=== PATIENT | female | born 1995 | race Asian ===

== ENCOUNTER 2018-09-28 00:10 | Emergency (ER) | payer MEDICAID, OTHER ==
[~2018-09-28] VITALS: Ht 170.2 cm; Wt 48.1 kg
--- NOTE | 2018-09-28 00:25 | NUR ---
PT BIBSELF COMPLAINING OF RASH THAT STARTED AT 3AM YESTERDAY. PT STATES, "THE RASH BECAME ITCHY, AND GETTING WORSE TODAY." PT IS AXO4. RESPIRATIONS EVEN AND UNLABORED. PT AMBULATORY WITH STEADY GAIT TO BED 12.
--- NOTE | 2018-09-28 00:35 | NUR ---
PT AMBULATED W/ STEADY GAIT TO BATHROOM. URINE SAMPLE OBTAINED AND SENT TO LAB.
[2018-09-28] MEDS ORDERED: diphenhydrAMINE HCL 25 MG CAPSULE PO ONE (01:00)
[2018-09-28] MEDS ORDERED: FAMOTIDINE (20 MG) 20 MG TABLET PO ONE (01:00)
[2018-09-28] MEDS ORDERED: predniSONE 20 MG TABLET PO ONE (01:00)
[2018-09-28] MEDS ORDERED: predniSONE 20 MG TABLET ONE (01:10)
[2018-09-28] MEDS ORDERED: FAMOTIDINE (20 MG) 20 MG TABLET ONE (01:10)
[2018-09-28] MEDS ORDERED: diphenhydrAMINE HCL 50 MG CAPSULE ONE (01:10)
[2018-09-28] MEDS ORDERED: EPINEPHRINE (1:1000) 1 MG/ML AMPUL ONE (01:46)
[2018-09-28] MEDS ORDERED: EPINEPHRINE (1:1000) 1 MG/ML AMPUL IM ONE (02:00)
--- NOTE | 2018-09-28 02:00 | NUR ---
PT RESTING IN BED, NAD NOTED. WILL CONTINUE TO MONITOR.
--- NOTE | 2018-09-28 03:40 | NUR ---
Patient discharged to home in stable condition. Written and verbal after care instructions given. Patient verbalizes understanding of instruction. Pt ambulatory with steady gait.
[2018-09-28 03:48] VITALS: BP 120/77
== END 2018-09-28 03:49 | disposition home or self-care (01) ==
LOC: ER 00:13
DX: T78.1XXA Other adverse food reactions, not elsewhere classified, initial encounter (principal); L50.9 Urticaria, unspecified; Z91.018 Allergy to other foods; X58.XXXA Exposure to other specified factors, initial encounter
CPT/HCPCS: 84703; 96372; 99284; J0171; J7512; Q0163

== ENCOUNTER 2018-12-19 18:49 | Emergency (ER) | payer OTHER ==
[~2018-12-19] VITALS: Ht 170.2 cm; Wt 46.3 kg
[2018-12-19 19:18] VITALS: BP 109/79
--- NOTE | 2018-12-19 19:38 | NUR ---
CHIMNEY SWEEPER AT BEDSIDE FOR XRAY.
--- NOTE | 2018-12-19 20:28 | NUR ---
Patient discharged to home in stable condition. Written and verbal after care instructions given. Patient verbalizes understanding of instruction.
== END 2018-12-19 20:31 | disposition home or self-care (01) ==
LOC: ER 19:00
DX: S80.11XA Contusion of right lower leg, initial encounter (principal); F10.10 Alcohol abuse, uncomplicated; Y90.9 Presence of alcohol in blood, level not specified; Z60.2 Problems related to living alone; W22.8XXA Striking against or struck by other objects, initial encounter; Y93.89 Activity, other specified; Y92.89 Other specified places as the place of occurrence of the external cause; Y99.8 Other external cause status
CPT/HCPCS: 73590-TC

== ENCOUNTER 2020-09-20 20:22 | Emergency (ER) | payer OTHER ==
[~2020-09-20] VITALS: Ht 170.2 cm; Wt 48.5 kg
--- NOTE | 2020-09-20 20:35 | NUR ---
PT BIBSELF C/O LEFT EAR PAIN X2DAYS. PT AAOX4 BREATHING EVENLY AND UNLABORED. PT STATES THAT "I HAVE PRESSURE AND TENDERNESS AROUND THE EAR. I USED A QTIP AND SAW SOME BLOOD AND CLEAR LIQUID ON IT". PT SKIN WARM, DRY, AND INTACT. PT ATTACHED TO MONITOR AND POX. PT GIVEN BLANKET AND CALL LIGHT WITHIN REACH.
[2020-09-20] MEDS ORDERED: OFLO5DRO5 LEFT EAR (20:54)
--- NOTE | 2020-09-20 21:00 | NUR ---
Patient discharged to home in stable condition. Written and verbal after care instructions given. Patient verbalizes understanding of instruction. Pt ambulatory with a steady gait
[2020-09-20 21:07] VITALS: BP 114/84
== END 2020-09-20 21:00 | disposition home or self-care (01) ==
LOC: ER 20:27
DX: H60.92 Unspecified otitis externa, left ear (principal); F17.200 Nicotine dependence, unspecified, uncomplicated; Z60.2 Problems related to living alone; Z79.899 Other long term (current) drug therapy

== ENCOUNTER 2021-12-05 17:52 | Emergency (ER) | payer OTHER ==
[~2021-12-05] VITALS: Ht 170.2 cm; Wt 49.9 kg
[~2021-12-05 17:52] MED LIST: OFLO5DRO5 LEFT EAR
[2021-12-05 18:13] VITALS: BP 109/88
--- NOTE | 2021-12-05 18:51 | NUR ---
COVID, FLU, AND STREP SWABS DONE AND SENT TO LAB
--- NOTE | 2021-12-05 18:53 | NUR ---
Patient discharged to home in stable condition. Written and verbal after care instructions given. Patient verbalizes understanding of instruction.
== END 2021-12-05 18:54 | disposition home or self-care (01) ==
LOC: ER 17:55
DX: B34.9 Viral infection, unspecified (principal); Z20.822 Contact with and (suspected) exposure to COVID-19
CPT/HCPCS: 87070; 87426; 87804; 87880; 99283; C9803; 86403-TC

== ENCOUNTER 2022-09-06 16:24 | Emergency (ER) | payer OTHER ==
[~2022-09-06] VITALS: Ht 170.2 cm; Wt 49.9 kg
--- NOTE | 2022-09-06 17:25 | NUR ---
GEREMIAS C/O CUT ON THE CHIN LAST NIGHT AFTER HELPING DRUNK FRIEND
[2022-09-06] MEDS ORDERED: LIDOCAINE 1%-EPI 1:100,000 20 ML VIAL ONE (17:43)
[2022-09-06 19:30] VITALS: BP 106/69
[2022-09-06] MEDS ORDERED: IBUP-1957 PO (19:57)
--- NOTE | 2022-09-06 20:35 | NUR ---
Patient discharged to home in stable condition. Written and verbal after care instructions given. Patient verbalizes understanding of instruction. Pt ambulatory with a steady gait
== END 2022-09-06 20:52 | disposition home or self-care (01) ==
LOC: ER 16:30
DX: S01.81XA Laceration without foreign body of other part of head, initial encounter (principal); F17.200 Nicotine dependence, unspecified, uncomplicated; Z60.2 Problems related to living alone; Z79.899 Other long term (current) drug therapy; W18.30XA Fall on same level, unspecified, initial encounter; Y93.89 Activity, other specified; Y92.89 Other specified places as the place of occurrence of the external cause; Y99.8 Other external cause status
CPT/HCPCS: 99282; 12013; A6403; J3490

== ENCOUNTER 2024-02-19 15:11 | Emergency (ER) | payer OTHER ==
[~2024-02-19] VITALS: Ht 170.2 cm; Wt 54.4 kg
[~2024-02-19 15:11] MED LIST changes: +IBUP-1957 PO
[2024-02-19 15:36] VITALS: BP 114/72; TEMP 97.9; O2SAT 100
[2024-02-19] MEDS ORDERED: ACETAMINOPHEN 325 MG TABLET ONE (18:17)
[2024-02-19] MEDS: ACETAMINOPHEN 325 MG TABLET PO ONE (18:20)
[2024-02-19 18:39] LABS: PREGNANCY TEST URINE QUAL NEGATIVE (NEGATIVE)
== END 2024-02-19 20:32 | disposition home or self-care (01) ==
LOC: ER 15:16
DX: S09.8XXA Other specified injuries of head, initial encounter (principal); S50.311A Abrasion of right elbow, initial encounter; F17.200 Nicotine dependence, unspecified, uncomplicated; Z60.2 Problems related to living alone; Y04.8XXA Assault by other bodily force, initial encounter; Y93.89 Activity, other specified; Y92.488 Other paved roadways as the place of occurrence of the external cause; Y99.8 Other external cause status
CPT/HCPCS: 70450-TC; 73080-TC; 84703-TC